=== PATIENT | female | born 1970 | race Caucasian/White ===

== ENCOUNTER 2020-11-19 21:55 | Emergency (ER) | payer MEDICAID ==
[~2020-11-19] VITALS: Ht 167.6 cm; Wt 104.3 kg
[~2020-11-19 21:55] MED LIST: PROZAC PO
[2020-11-19] MEDS ORDERED: ACETAMINOPHEN 325 MG TAB PO ONE (22:15)
[2020-11-19 23:00] VITALS: BP 112/76
[2020-11-19 23:26] LABS: Basophils # (auto) 0 10 ^3/uL (0-0.2); Basophils % (auto) 0.2 % (0.0-2.0); Eosinophils # (auto) 0 10 ^3/uL (0-0.8); Eosinophils % (auto) 0.2 % (0.0-7.0); Hematocrit 38.4 % (36.0-46.0); Hemoglobin 13.3 g/dL (12.2-16.2); Lymphocytes # (auto) 0.4 10 ^3/uL (0.4-5.4); Lymphocytes % (auto) 3.7 % (10.0-50.0); Mean Corpuscular Hemoglobin 27.6 pg (28.0-32.0); Mean Corpuscular Hgb Conc. 34.6 g/dL (32.0-36.0); Mean Corpuscular Volume 79.9 fL (80.0-100.0); Monocytes # (auto) 0.3 10 ^3/uL (0-1.3); Monocytes % (auto) 2.5 % (0.0-12.0); Neutrophils # (auto) 9.7 10 ^3/uL (1.6-8.6); Neutrophils % (auto) 93.4 % (37.0-80.0); Platelet Count (auto) 235 10^3/uL (140-450); Red Cell Distribution Width 15.4 % (11.8-14.3); White Blood Cell 10.4 10^3/uL (4.4-10.8)
[2020-11-19 23:42] LABS: Albumin 2.4 g/dL (3.4-5.0); Anion Gap 6 (5-15); Blood Urea Nitrogen 8 mg/dL (7-18); Calcium 8.8 mg/dL (8.5-10.1); Carbon Dioxide 28 mmol/L (21-32); Chloride 98 mmol/L (98-107); Glucose 120 mg/dL (74-106); Potassium 3.4 mmol/L (3.5-5.1); Sodium 132 mmol/L (136-145)
[2020-11-19 23:44] LABS: INR 1.13 (0.9-1.15); Partial Thromboplastin Time 27.8 sec (23.0-31.2)
[2020-11-19 23:48] LABS: Alanine Aminotransferase 33 U/L (13-56); Alkaline Phosphatase 300 U/L (45-117); Aspartate Aminotransferase 27 U/L (15-37); BUN/Creatinine Ratio 7.6; Bilirubin, Total 1.4 mg/dL (0.2-1.0); GFR African American 72 mL/min; GFR Non-African American 59 mL/min; Total Protein 7.6 g/dL (6.4-8.2)
[2020-11-20 02:10] LABS: Urine Bacteria FEW /hpf (None Seen); Urine Blood Negative /uL (Negative); Urine WBC 1 /hpf (0 - 5)
== END 2020-11-20 01:55 | disposition home or self-care (01) ==
LOC: ER 21:57
DX: R50.9 Fever, unspecified (principal); R10.9 Unspecified abdominal pain; F17.210 Nicotine dependence, cigarettes, uncomplicated; Z20.828 Contact with and (suspected) exposure to other viral communicable diseases
CPT/HCPCS: 36415; 71045; 80053; 81001; 83880; 84484; 85025; 85610; 85730; 87426; 99284; C9803; U0003